=== PATIENT | male | born 1965 | race Caucasian/White ===

== ENCOUNTER 2016-10-30 23:01 | Observation (INO) | payer BC ==
[~2016-10-30] VITALS: Ht 167.6 cm; Wt 88.0 kg
[~2016-10-30 23:01] MED LIST: HYDR-3533 PO; IBUP600T26 PO
[2016-10-30 23:03] VITALS: BP 113/56; PULSE 89; RESP 20; TEMP 98.7; O2SAT 92
[2016-10-30] MEDS ORDERED: ONDANSETRON HCL 4 MG/2 ML VIAL ONE (23:10)
[2016-10-30 23:13] VITALS: BP 101/72; PULSE 93; RESP 18; O2SAT 95; O2SAT 98
[2016-10-30] MEDS ORDERED: EPINEPHrine HCL (1:1000) 1 MG/ML VIAL IM ONE (23:15)
[2016-10-30] MEDS ORDERED: SODIUM CHLORIDE 0.9% FLUSH 10 ML FLUSH IV FLUSH PRN (23:15)
[2016-10-30] MEDS ORDERED: diphenhydrAMINE HCL 50 MG/ML VIAL IVP ONE (23:15)
[2016-10-30] MEDS ORDERED: FAMOTIDINE 20 MG/2 ML VIAL IV PUSH ONE (23:15)
[2016-10-30] MEDS ORDERED: ONDANSETRON HCL 4 MG/2 ML VIAL IV PUSH ONE (23:15)
[2016-10-30] MEDS ORDERED: methylPREDNISolone SOD SUCC 125 MG/2 ML VIAL IVP ONE (23:15)
--- NOTE | 2016-10-30 23:19 | PD ---
HPI Chief Complaint: Allergic/Adverse Reaction Time Seen by Provider: 23:04 Travel History International Travel<30 days: No Contact w/Intl Traveler<30days: No Traveled to known affect area: No History of Present Illness HPI 51-year-old male complains of facial swelling, itching rash of the body. Patient states that he has intermittent fever especially at night for the past week. Patient states that he took amoxicillin about an hour prior coming to arrival. Patient started having swelling of the face and itching rash on the face and extremity subsequently. Patient denies any chest pain or shortness of breath. Patient denies abdominal pain. Patient complaining of nausea but no vomiting or diarrhea. Patient states that he took amoxicillin before in the past without any problem. PFSH Past Medical History Musculoskeletal: Yes (multiple broken bones, ribs, fingers) Social History Alcohol Use: Yes Tobacco Use: Yes Substance Use: No Allergies-Medications (Allergen,Severity, Reaction): Coded Allergies: Amoxicillin (Verified Allergy, Severe, Anaphylaxis, 10/30/16) Reported Meds & Prescriptions Reported Meds & Active Scripts Active Lortab 5 mg/325 mg (Hydrocodone/Acetaminophen 5 mg/325 mg) 1 Tab 1 Tab PO Q6H PRN Ibuprofen 600 Mg Tab 600 Mg PO Q8H PRN Review of Systems General / Constitutional: No: Fever Eyes: No: Visual changes HENT: No: Headaches Cardiovascular: No: Chest Pain or Discomfort Respiratory: No: Shortness of Breath Gastrointestinal: No: Abdominal Pain Genitourinary: No: Dysuria Musculoskeletal: No: Pain Skin: Positive Rash, Positive Itching Neurologic: No: Weakness Psychiatric: No: Depression Endocrine: No: Polydipsia Hematologic/Lymphatic: No: Easy Bruising Physical Exam Narrative GENERAL: Well-nourished, well-developed patient. SKIN: Focused skin assessment warm/dry. Patient has swelling of the lips and hives over the face and chest trunk and extremity. HEAD: Normocephalic. EYES: No scleral icterus. No injection or drainage. NECK: Supple, trachea midline. No JVD or lymphadenopathy. CARDIOVASCULAR: Regular rate and rhythm without murmurs, gallops, or rubs. RESPIRATORY: Breath sounds equal bilaterally. No accessory muscle use. GASTROINTESTINAL: Abdomen soft, non-tender, nondistended. MUSCULOSKELETAL: No cyanosis, or edema. BACK: Nontender without obvious deformity. No CVA tenderness. Neurologic exam normal. Data Data Last Documented VS Vital Signs Date Time Temp Pulse Resp B/P Pulse Ox O2 Delivery O2 Flow Rate FiO2 10/30/16 23:13 95 Nasal Cannula 2 10/30/16 23:13 93 18 101/72 10/30/16 23:03 98.7 Orders Ecg Monitoring (10/30/16 23:04) Iv Access Insert/Monitor (10/30/16 23:04) Oximetry (10/30/16 23:04) Diphenhydramine Inj (Benadryl Inj) (10/30/16 23:15) Methylprednisolone So Succ Inj (Solumedr (10/30/16 23:15) Famotidine Inj (Pepcid Inj) (10/30/16 23:15) Sodium Chloride 0.9% Flush (Ns Flush) (10/30/16 23:15) Epinephrine (1:1000) Inj (Adrenalin (1:1 (10/30/16 23:15) Ondansetron Inj (Zofran Inj) (10/30/16 23:15) Ondansetron Inj (Zofran Inj) (10/30/16 23:10) Complete Blood Count With Diff (10/30/16 23:23) Basic Metabolic Panel (Bmp) (10/30/16 23:23) Urinalysis - C+S If Indicated (10/30/16 23:23) Chest, Single Ap (10/30/16 23:23) Labs Laboratory Tests Test 10/30/16 10/30/16 18:59 23:20 Sodium Level 138 MEQ/L Potassium Level 4.0 MEQ/L Chloride Level 103 MEQ/L Carbon Dioxide Level 21.1 MEQ/L Anion Gap 14 MEQ/L Blood Urea Nitrogen 14 MG/DL Creatinine 1.17 MG/DL Estimat Glomerular Filtration 65 ML/MIN Rate Random Glucose 96 MG/DL Calcium Level 8.8 MG/DL White Blood Count 15.6 TH/MM3 Red Blood Count 5.61 MIL/MM3 Hemoglobin 19.1 GM/DL Hematocrit 55.1 % Mean Corpuscular Volume 98.2 FL Mean Corpuscular Hemoglobin 34.0 PG Mean Corpuscular Hemoglobin 34.6 % Concent Red Cell Distribution Width 13.9 % Platelet Count 317 TH/MM3 Mean Platelet Volume 8.5 FL Neutrophils (%) (Auto) 67.9 % Lymphocytes (%) (Auto) 22.3 % Monocytes (%) (Auto) 6.1 % Eosinophils (%) (Auto) 2.3 % Basophils (%) (Auto) 1.4 % Neutrophils # (Auto) 10.6 TH/MM3 Lymphocytes # (Auto) 3.5 TH/MM3 Monocytes # (Auto) 1.0 TH/MM3 Eosinophils # (Auto) 0.4 TH/MM3 Basophils # (Auto) 0.2 TH/MM3 CBC Comment DIFF FINAL Differential Comment MDM Medical Decision Making Medical Screen Exam Complete: Yes Emergency Medical Condition: Yes Interpretation(s) 12:06 AM. Chest x-ray shows no acute consolidation. CBC WBC 15.6. Hemoglobin 19.1 hematocrit 55.1. Normal differential. Differential Diagnosis Differential diagnosis including allergic reaction, anaphylactoid reaction. Narrative Course 51-year-old male with itching rash and swelling of the face and itching rash on the face, chest, trunk, extremity. Epinephrine 0.3 mg IM. Solu-Medrol 125 mg IV. Benadryl 50 mg IV. Pepcid 20 mg IV. Zofran 4 mg IV. 12:46 AM. Reexamination patient still has mild swelling and edema of the tongue and lips. No stridor or wheezes. No problem with swallowing. The rash on extremities much better. Diagnosis Primary Impression: Allergic reaction Qualified Code: T78.40XA - Allergic reaction, initial encounter Additional Impression: Viral syndrome Admitting Information Admitting Physician Requests: Observation Eh Vicente MD October 30, 2016 23:18
--- NOTE | 2016-10-30 23:47 | RADRPT ---
EXAM DATE/TIME: 10/30/2016 23:21 [facility] COMPARISON: CHEST SINGLE AP, December 25, 2015, 8:06. INDICATIONS : Patient claims they had an allergic reaction to something tonight and had facial swelling and rash to the body. Complains of some shortness of breath. MEDICAL HISTORY : None. SURGICAL HISTORY : None. ENCOUNTER: Initial ACUITY: 1 day PAIN SCORE: 0/10 LOCATION: chest FINDINGS: A single view of the chest demonstrates the lungs to be symmetrically aerated without evidence of mas s, infiltrate or effusion. The cardiomediastinal contours are unremarkable. Osseous structures are intact. CONCLUSION: No acute disease. No significant change has occurred. Deric Schwab MD on October 30, 2016 at 23:45 Board Certified Radiologist. This report was verified electronically.
[2016-10-30 23:59] LABS: AUTOMATED NEUTROPHIL # 10.6 TH/MM3 (1.8-7.7); BASOPHIL # 0.2 TH/MM3 (0-0.2); BASOPHIL % 1.4 % (0.0-2.0); EOSINOPHIL # 0.4 TH/MM3 (0-0.4); EOSINOPHIL % 2.3 % (0.0-4.0); HEMATOCRIT 55.1 % (39.0-51.0); HEMO FLAGS DIFF FINAL; LYMPH % 22.3 % (9.0-44.0); LYMPHOCYTE # 3.5 TH/MM3 (1.0-4.8); MEAN CELL VOLUME 98.2 FL (80.0-100.0); MEAN CORPUSCULAR HGB CONC 34.6 % (32.0-36.0); MONO % 6.1 % (0.0-8.0); NEUT % 67.9 % (16.0-70.0); PLATELET COUNT 317 TH/MM3 (150-450); RED BLOOD COUNT 5.61 MIL/MM3 (4.50-5.90); RED CELL DISTRIBUTION WIDTH 13.9 % (11.6-17.2); WHITE BLOOD COUNT 15.6 TH/MM3 (4.0-11.0)
[2016-10-31 00:18] LABS: BICARBONATE 21.1 MEQ/L (21.0-32.0)
[2016-10-31] MEDS ORDERED: SODIUM CHLORIDE 0.9% FLUSH 10 ML FLUSH IV FLUSH PRN (01:15)
[2016-10-31] MEDS ORDERED: NALOXONE HCL 0.4 MG/ML AMP IV PRN (01:15)
[2016-10-31 02:24] VITALS: BP 104/71; PULSE 83; RESP 18; TEMP 98.1; O2SAT 100
[2016-10-31 02:42] VITALS: BP 117/75; PULSE 77; RESP 16; TEMP 97.6; O2SAT 97
[2016-10-31 02:53] VITALS: PULSE 78
--- NOTE | 2016-10-31 03:13 | HHI.HP ---
[facility] Primary Care Physician Admission Diagnosis allergic reaction. Viral syndrome. Diagnoses: Chief Complaint: Allergic reaction Travel History International Travel<30 Days: No Contact w/Intl Traveler <30 Da: No Traveled to Known Affected Are: No History of Present Illness History from patient, his at the bedside, ER physician communication, and review of medical records. Patient reported that he was having fevers for the past 10 days and for this reason he took one dose of amoxicillin which his got from [facility] about a month ago. He states that immediately after taking this amoxicillin, within 15 minutes, he started having diffuse rash, with associated lip swelling, tongue swelling, with feeling of throat closing. His immediately drove him to the hospital. In the emergency room, patient was given epinephrine, Solu-Medrol, and Benadryl. His symptoms somewhat improved after the above treatment. Patient reports that he has had been insulins including amoxicillin previously. Never had any allergic reactions previously. Patient states that he had fever starting around 4 PM every day for the past 10 days. He however did not measure his temperature. He isn't sure whether her coughing. But he thinks he does cough. Denies any nausea or vomiting or abdominal pains. Next and denies diarrhea. Denies blood in his stool or urine. Also denies any urinary burning or pain on urination or frequent urination. He does report associated diaphoresis with fever episodes. Denies loss of weight. Denies any lymphadenopathy. Denies any recent travels out of state or to another country. Denies any other members of the family or friends from out of state visiting him. Review of Systems Except as stated in HPI: all other systems reviewed are Neg Past Family Social History Past Medical History none Past Surgical History tonsilectomy hernia as a child Allergies: Coded Allergies: Amoxicillin (Verified Allergy, Severe, Anaphylaxis, 10/30/16) Family History none that he knows of Social History quit smoking may 11 2016- used to smoke about 1 pack a day drinks etoh only socially no drugs Physical Exam Vital Signs Vital Signs Date Time Temp Pulse Resp B/P Pulse Ox O2 Delivery O2 Flow Rate FiO2 5/12/17 02:53 78 10/31/16 02:42 97.6 77 16 117/75 97 10/31/16 02:24 98.1 83 18 104/71 100 Room Air 10/30/16 23:13 95 Nasal Cannula 2 10/30/16 23:13 93 18 101/72 98 Room Air 10/30/16 23:13 25 95 Room Air 2 10/30/16 23:03 98.7 89 20 113/56 92 Physical Exam GENERAL: This is a well-nourished, well-developed patient, in no apparent distress. SKIN: No rashes, ecchymoses or lesions. Cool and dry. HEAD: Atraumatic. Normocephalic. No temporal or scalp tenderness. EYES: No scleral icterus. No injection or drainage. ENT: Nose without bleeding, purulent drainage or septal hematoma. . Airway patent. lips mildly swollen NECK: Trachea midline. No JVD CARDIOVASCULAR: Regular rate and rhythm without murmurs, gallops, or rubs. RESPIRATORY No wheezes, rales, or rhonchi. GASTROINTESTINAL: Abdomen soft, non-tender, nondistended. No hepato-splenomegaly , or palpable masses. No guarding. MUSCULOSKELETAL: Extremities without clubbing, cyanosis, or edema. No calf tenderness. NEUROLOGICAL Motor and sensory grossly within normal limits.. Normal speech. Laboratory Laboratory Tests Test 10/30/16 10/30/16 18:59 23:20 Sodium Level 138 Potassium Level 4.0 Chloride Level 103 Carbon Dioxide Level 21.1 Anion Gap 14 Blood Urea Nitrogen 14 Creatinine 1.17 Estimat Glomerular Filtration 65 Rate Random Glucose 96 Calcium Level 8.8 White Blood Count 15.6 Red Blood Count 5.61 Hemoglobin 19.1 Hematocrit 55.1 Mean Corpuscular Volume 98.2 Mean Corpuscular Hemoglobin 34.0 Mean Corpuscular Hemoglobin 34.6 Concent Red Cell Distribution Width 13.9 Platelet Count 317 Mean Platelet Volume 8.5 Neutrophils (%) (Auto) 67.9 Lymphocytes (%) (Auto) 22.3 Monocytes (%) (Auto) 6.1 Eosinophils (%) (Auto) 2.3 Basophils (%) (Auto) 1.4 Neutrophils # (Auto) 10.6 Lymphocytes # (Auto) 3.5 Monocytes # (Auto) 1.0 Eosinophils # (Auto) 0.4 Basophils # (Auto) 0.2 CBC Comment DIFF FINAL Differential Comment Result Diagram: 10/30/16 23210/30/16 1859 Imaging Last 48 hours Impressions Chest X-Ray 10/30/162322 Signed Impressions: Service Date/Time: , October 30, 2016 23:21 - CONCLUSION: No acute disease. No significant change has occurred. Deric Schwab MD Assessment and Plan Assessment and Plan Impression: Severe allergic reaction/anaphylaxis to amoxicillinmostly resolved Feverof 10 days durationwith mostly nighttime fevers/diaphoresis per patient Plan: Patient was observed overnight. Patient on examination has mild lip swelling. However he is able to swallow food he has no respiratory distress, saturating well, with no evidence of rash. I would go ahead and give 1 more dose of Benadryl 50 mg IV with Solu-Medrol 125 mg IV. I would then observe him a few hours afterwards. 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 As to his fever, his chest x-ray is negative. Would obtain UA, and blood cultures. There is leukocytosis on CBC although there is no left shift. It is very possible the patient has viral syndrome rather than infectious etiology since this has been going on for about 10 days. Patient is explained in detail that we do not have any source for his infection and that we do not know why he is having fevers. However if he would like to be discharged, we would go ahead and discharge him after treatment of his allergic reaction. He can follow up as an outpatient with his PCP or return back to ER if he does not feel well. We would certainly call him back as well if there is positive blood cultures. We'll observe him for some few hours and decide on disposition. Likely discharge home by the morning. Discussed Condition With Patient, his at the bedside, ER physician, nursing staff Golden Tipton MD October 31, 2016 03:13
[2016-10-31] MEDS ORDERED: SODIUM CHLOR 0.9% 1000 ML INJ 1,000 ML IV SCH (03:15)
[2016-10-31] MEDS ORDERED: diphenhydrAMINE HCL 50 MG/ML VIAL IV PUSH ONE (03:45)
[2016-10-31] MEDS ORDERED: methylPREDNISolone SOD SUCC 125 MG/2 ML VIAL IV PUSH ONE (03:45)
[2016-10-31 04:31] VITALS: BP 111/74; PULSE 78; RESP 21; TEMP 97.8; O2SAT 98
[2016-10-31 06:11] LABS: BACTERIA, URINE RARE /hpf; BLOOD, URINE NEG (NEG); COMMENT (UR) CULT NOT INDICATED; CULTURE IF INDICATED CULT NOT INDICATED; GLUCOSE,URINE NEG (NEG); HYALINE CAST, URINE 7 /lpf (RARE); KETONE, URINE NEG (NEG); MUCUS URINE FEW /lpf (OCC); NITRITE,URINE NEG (NEG); URINE COLOR YELLOW (YELLW/STRAW)
--- NOTE | 2016-10-31 06:28 | HHI.DCPOC ---
Discharge Care Plan Diagnosis: (1) Allergic reaction (2) Viral syndrome Your Health Problems Are: Rash Goals to Promote Your Health * To prevent worsening of your condition and complications * To maintain your health at the optimal level Directions to Meet Your Goals Take your medications as prescribed Follow your dietary instruction Follow activity as directed Keep your appointments as scheduled Take your immunizations and boosters as scheduled If your symptoms worsen call your PCP, if no PCP go to Urgent Care Center or Emergency Room Smoking is Dangerous to Your Health. Avoid second hand smoke Call the 24-hour hour crisis hotline for domestic abuse at Golden Tipton MD October 31, 2016 06:28
[2016-10-31] MEDS ORDERED: SODIUM CHLORIDE 0.9% FLUSH 10 ML FLUSH IV FLUSH SCH (09:00)
== END 2016-10-31 06:50 | disposition home or self-care (01) ==
LOC: NEPC 23:01 → NEDA 10-31 01:05 → NEPHCDU 10-31 02:37
PROVIDERS: ADMIT Internal Medicine; ATTEND Internal Medicine
DX: T88.6XXA Anaphylactic reaction due to adverse effect of correct drug or medicament properly administered, initial encounter (principal); R50.9 Fever, unspecified; D72.829 Elevated white blood cell count, unspecified; Z87.891 Personal history of nicotine dependence
CPT/HCPCS: 71010; 80048; 81001; 85025; 87040; 96372; 96374; 96375; 99285; G0378; J0171; J1200; J2405; J2930; J7030